=== PATIENT | female | born 1950 | race Caucasian/White ===

== ENCOUNTER → 2017-02-13 | Outpatient (CLI) | payer BC ==
[~2017-02-13] MED LIST: ANTIBIOTIC; HYDROCODONE-APA1 T56 PO; LEVOTHROID125 MCG PO; PRAVASTATIN SOD40 MG PO; PROAIR HFA8.5 GM IH
--- NOTE | ~2017-02-13 | US128 ---
[id number] [facility]. [facility] [address]. [place], [place] [address] [id number] O MR#: [id number] Acc #: [id number] NAME: CHERELLE POLO : 1950 SEX: F STUDY DATE/TIME: 02/13/2017 15:20 UNIT: [facility] ROOM: STUDY DESCRIPTION: Thyroid Attending Physician: Verónica Medeiros M.D. Referring Physician: Verónica Medeiros M.D. Ordering Physician: Verónica Medeiros M.D. Primary Care Physician: Verónica Medeiros M.D. MEDICAL IMAGING REPORT This report is preliminary unless electronic signature is present EXAM Thyroid ultrasound. DATE OF STUDY 02/13/2017 HISTORY Hypothyroidism. Six year history of thyroid replacement therapy. FINDINGS Relatively atrophic gland. No nodule on either side. Vascularity diminished. IMPRESSION Relatively atrophic gland without nodules. Dictated by... Bi Small M.D. THIS IS AN ELECTRONICALLY VERIFIED REPORT Bi Small M.D. at 02/16/2017 2:07 PM JONATHAN/nathalie TD: 02/14/2017 16:03 JOB #: [id number] MEDICAL IMAGING REPORT Page 1 of 1 COPY
== END | disposition home or self-care (01) ==
LOC: CWCC 14:59
DX: E01.0 Iodine-deficiency related diffuse (endemic) goiter (principal); E03.4 Atrophy of thyroid (acquired)
CPT/HCPCS: 76536